=== PATIENT | male | born 1960 | race Native Hawaiian/Other Pacific Islander ===

== ENCOUNTER 2018-10-26 10:59 | Day surgery (SDC) | payer BC ==
[2018-10-26 14:34] LABS: PLATELET COUNT 238 K/uL (142-355)
[2018-10-26 14:36] LABS: POTASSIUM 4.2 mmol/L (3.6-5.2)
== END 2018-10-26 17:21 | disposition home or self-care (01) ==
LOC: OR 10:59
PROVIDERS: Internal Medicine Gastroenterology
PROC: 0DBL8ZZ Excision of Transverse Colon, Via Natural or Artificial Opening Endoscopic (ICD-10-PCS; principal; 2018-10-26)
DX: D12.3 Benign neoplasm of transverse colon (principal); K64.8 Other hemorrhoids; Z12.11 Encounter for screening for malignant neoplasm of colon
CPT/HCPCS: 80053; 85027; J2001; J2250; J2704

== ENCOUNTER 2019-12-03 09:19 | Outpatient (CLI) | payer BC | END 2019-12-03 19:27 | disposition home or self-care (01) | LOC: LABW 09:19 → LAB 09:19 | DX: K64.0 First degree hemorrhoids (principal) | CPT/HCPCS: 82272 ==

== ENCOUNTER 2020-11-27 10:35 | Outpatient (CLI) | payer BC | END 2020-11-27 20:11 | disposition home or self-care (01) | LOC: US 10:35 | PROVIDERS: ATTEND Internal Medicine Cardiovascular Disease | DX: R09.89 Other specified symptoms and signs involving the circulatory and respiratory systems (principal) ==

== ENCOUNTER 2020-12-05 11:49 | Outpatient (CLI) | payer BC | END 2020-12-05 18:00 | disposition home or self-care (01) | LOC: LABW 11:49 | PROVIDERS: ATTEND Internal Medicine Gastroenterology | DX: K64.0 First degree hemorrhoids (principal) | CPT/HCPCS: 82272 ==